=== PATIENT | male | born 1955 | race Caucasian/White ===

== ENCOUNTER 2016-07-23 17:29 | Inpatient (IN) | payer MEDICARE ==
[~2016-07-23] VITALS: Ht 177.8 cm; Wt 85.7 kg
[~2016-07-23 17:29] MED LIST: ALPRAZOLAM0.5 MG PO; AVODART0.5 MG PO; IPRAT-ALBUT 0.5-3 ML INH; LEVAQUIN750 MG PO; LIPITOR TAB 2020 MG PO; LISINOPRIL20 MG PO; LO-DOSE ASPIRIN81 MG PO; LOPRESSOR50 MG PO; LYRICA150 MG PO; MEDROL TAB 4 MG4 MG PO; NORVASC 5 MG TAB5 MG PO; OMNICEF 300 MG300 MG PO; OXYCODON-ACETA1 EAC1 PO; OXYCONTIN20 MG PO; OXYCONTIN40 MG PO; SPIRIVA18 MCG INH
[2016-07-23 18:56] LABS: HEMOGLOBIN 13.1 gm/dl (14.0-17.5); RED BLOOD COUNT 4.64 M/UL (4.20-5.50); WHITE BLOOD COUNT 11.6 K/UL (4.5-11.0)
[2016-07-24 00:29] LABS: HEMOGLOBIN 11.8 gm/dl (14.0-17.5)
[2016-07-24] MEDS ORDERED: OXYCONTIN60 MG PO (00:56)
[2016-07-24] MEDS ORDERED: OXYCONTIN40 MG PO (00:58)
[2016-07-24] MEDS ORDERED: PERCOCET 5-3251 EACH PO (00:59)
[2016-07-24] MEDS ORDERED: PERCOCET 10-321 EACH PO (01:00)
[2016-07-24 06:01] LABS: HEMOGLOBIN 13.2 gm/dl (14.0-17.5); RED BLOOD COUNT 4.65 M/UL (4.20-5.50)
[2016-07-24] MEDS ORDERED: NORVASC 5 MG TAB5 MG PO (06:30)
[2016-07-25 05:05] LABS: WHITE BLOOD COUNT 7.8 K/UL (4.5-11.0)
[2016-07-25 05:10] LABS: HEMOGLOBIN 10.6 gm/dl (14.0-17.5); RED BLOOD COUNT 3.75 M/UL (4.20-5.50)
[2016-07-25 13:06] LABS: HEMOGLOBIN 10.3 gm/dl (14.0-17.5)
[2016-07-25 22:16] LABS: BUN/CREATININE RATIO 28 (0-10)
[2016-07-26 03:59] LABS: HEMOGLOBIN 9.9 gm/dl (14.0-17.5); RED BLOOD COUNT 3.56 M/UL (4.20-5.50); WHITE BLOOD COUNT 6.7 K/UL (4.5-11.0)
[2016-07-26 04:59] LABS: BUN/CREATININE RATIO 30 (0-10)
[2016-07-27 05:49] LABS: RED BLOOD COUNT 3.6 M/UL (4.20-5.50); WHITE BLOOD COUNT 8.1 K/UL (4.5-11.0)
[2016-07-27 06:06] LABS: BUN/CREATININE RATIO 28 (0-10)
[2016-07-29 05:40] LABS: HEMOGLOBIN 10.4 gm/dl (14.0-17.5); RED BLOOD COUNT 3.75 M/UL (4.20-5.50)
[2016-07-29 05:41] LABS: WHITE BLOOD COUNT 12.9 K/UL (4.5-11.0)
[2016-07-29 05:54] LABS: BUN/CREATININE RATIO 23 (0-10)
[2016-07-31 03:00] LABS: BUN/CREATININE RATIO 28 (0-10)
[2016-08-01 04:09] LABS: HEMOGLOBIN 10.6 gm/dl (14.0-17.5); RED BLOOD COUNT 3.81 M/UL (4.20-5.50)
[2016-08-01 04:11] LABS: WHITE BLOOD COUNT 19.1 K/UL (4.5-11.0)
[2016-08-01 04:23] LABS: BUN/CREATININE RATIO 28 (0-10)
[2016-08-03 04:59] LABS: HEMOGLOBIN 10.7 gm/dl (14.0-17.5); RED BLOOD COUNT 3.92 M/UL (4.20-5.50); WHITE BLOOD COUNT 19.8 K/UL (4.5-11.0)
[2016-08-03 05:28] LABS: BUN/CREATININE RATIO 24 (0-10)
[2016-08-04 03:39] LABS: HEMOGLOBIN 11.8 gm/dl (14.0-17.5); RED BLOOD COUNT 4.3 M/UL (4.20-5.50)
[2016-08-05 04:11] LABS: HEMOGLOBIN 10.5 gm/dl (14.0-17.5); WHITE BLOOD COUNT 17.9 K/UL (4.5-11.0)
[2016-08-05 04:13] LABS: RED BLOOD COUNT 3.83 M/UL (4.20-5.50)
[2016-08-05 04:27] LABS: BUN/CREATININE RATIO 31 (0-10)
[2016-08-06 03:35] LABS: HEMOGLOBIN 10.2 gm/dl (14.0-17.5); RED BLOOD COUNT 3.78 M/UL (4.20-5.50); WHITE BLOOD COUNT 16.8 K/UL (4.5-11.0)
[2016-08-07 03:56] LABS: HEMOGLOBIN 9.4 gm/dl (14.0-17.5); RED BLOOD COUNT 3.53 M/UL (4.20-5.50); WHITE BLOOD COUNT 14.1 K/UL (4.5-11.0)
[2016-08-07 04:12] LABS: BUN/CREATININE RATIO 23 (0-10)
[2016-08-08 03:21] LABS: RED BLOOD COUNT 3.68 M/UL (4.20-5.50); WHITE BLOOD COUNT 12.9 K/UL (4.5-11.0)
[2016-08-09 03:39] LABS: HEMOGLOBIN 10.2 gm/dl (14.0-17.5); RED BLOOD COUNT 3.74 M/UL (4.20-5.50); WHITE BLOOD COUNT 10.6 K/UL (4.5-11.0)
[2016-08-09 04:03] LABS: BUN/CREATININE RATIO 25 (0-10)
[2016-08-12] MEDS ORDERED: PERCOCET 10-321 EACH PO (15:15)
[2016-08-12] MEDS ORDERED: OXYCODONE-ACET1 EACH PO (15:16)
[2016-08-12] MEDS ORDERED: LIDODERM PATCH 51 EA EXT (15:16)
[2016-08-12] MEDS ORDERED: PREDNISONE20 MG PO (15:17)
[2016-08-12] MEDS ORDERED: MYCOSTATIN100000 UTS PO (15:18)
[2016-08-12] MEDS ORDERED: PROTONIX40 MG PO (15:18)
[2016-08-12] MEDS ORDERED: METOPROLOL TART50 MG PO (15:19)
[2016-08-12] MEDS ORDERED: THEO-DUR 300 M300 MG PO (15:19)
[2016-08-12] MEDS ORDERED: SPIRIVA HANDIH18 MCG INH (15:20)
[2016-08-12] MEDS ORDERED: SINGULAIR10 MG PO (15:20)
[2016-08-12] MEDS ORDERED: BREO ELLIPTA 11 EACH INH (15:21)
== END 2016-08-12 15:49 | disposition home health service (06) | DRG 871 ==
LOC: ER1 17:29 → M/S 23:07 → CCU 23:07 → PROG CARE 23:07 → ZEROF 23:07 → CCU 23:11 → M/S 07-26 11:31 → PROG CARE 07-31 19:55 → MED SURG 4 08-11 20:25
PROVIDERS: Emergency Medicine; Hospitalist; Internal Medicine; Internal Medicine Gastroenterology; Internal Medicine Nephrology; ADMIT Internal Medicine
PROC: B543ZZA Ultrasonography of Right Jugular Veins, Guidance (ICD-10-PCS; principal; 2016-07-24)
PROC: 05HM33Z Insertion of Infusion Device into Right Internal Jugular Vein, Percutaneous Approach (ICD-10-PCS; principal; 2016-07-24)
PROC: 0BCB8ZZ Extirpation of Matter from Left Lower Lobe Bronchus, Via Natural or Artificial Opening Endoscopic (ICD-10-PCS; 2016-08-03)
PROC: 0BC58ZZ Extirpation of Matter from Right Middle Lobe Bronchus, Via Natural or Artificial Opening Endoscopic (ICD-10-PCS; 2016-08-03)
PROC: 0BC38ZZ Extirpation of Matter from Right Main Bronchus, Via Natural or Artificial Opening Endoscopic (ICD-10-PCS; 2016-08-03)
PROC: 0BC68ZZ Extirpation of Matter from Right Lower Lobe Bronchus, Via Natural or Artificial Opening Endoscopic (ICD-10-PCS; 2016-08-03)
DX: A41.9 Sepsis, unspecified organism (principal); J96.21 Acute and chronic respiratory failure with hypoxia; J15.212 Pneumonia due to Methicillin resistant Staphylococcus aureus; R57.1 Hypovolemic shock; R65.21 Severe sepsis with septic shock; J45.901 Unspecified asthma with (acute) exacerbation; J44.1 Chronic obstructive pulmonary disease with (acute) exacerbation; J98.11 Atelectasis; T17.890A Other foreign object in other parts of respiratory tract causing asphyxiation, initial encounter; K92.0 Hematemesis; N17.9 Acute kidney failure, unspecified; D62 Acute posthemorrhagic anemia; J45.51 Severe persistent asthma with (acute) exacerbation; K59.00 Constipation, unspecified; R73.9 Hyperglycemia, unspecified; I48.0 Paroxysmal atrial fibrillation; F41.9 Anxiety disorder, unspecified; E83.52 Hypercalcemia; I95.9 Hypotension, unspecified; G89.4 Chronic pain syndrome; M43.16 Spondylolisthesis, lumbar region; K27.9 Peptic ulcer, site unspecified, unspecified as acute or chronic, without hemorrhage or perforation; K46.9 Unspecified abdominal hernia without obstruction or gangrene; E66.3 Overweight; Z68.27 Body mass index [BMI] 27.0-27.9, adult; I10 Essential (primary) hypertension; F17.220 Nicotine dependence, chewing tobacco, uncomplicated; K21.9 Gastro-esophageal reflux disease without esophagitis; G47.00 Insomnia, unspecified; E78.5 Hyperlipidemia, unspecified; Z99.81 Dependence on supplemental oxygen; Z79.82 Long term (current) use of aspirin; Z79.891 Long term (current) use of opiate analgesic; Z79.899 Other long term (current) drug therapy; Z80.9 Family history of malignant neoplasm, unspecified; Z82.49 Family history of ischemic heart disease and other diseases of the circulatory system
CPT/HCPCS: ECHO; 36415; 36600; 70450; 71010; 71020; 71250; 72125; 72128; 74000; 74020; 80048; 80053; 80198; 81001; 82140; 82150; 82330; 82397; 82550; 82553; 82570; 82785; 82803; 83605; 83690; 83735; 83874; 83970; 84100; 84300; 84484; 85014; 85018; 85025; 85027; 85610; 85730; 86850; 86900; 86901; 86920; 87040; 87070; 87077; 87102; 87186; 87205; 89050; 93005; 93306; 94640; 94660; 94664; 94667; 94668; 96374; 96375; 97110; 97116; 97530; 97535; 99285; C9113; J1956; J2020; J2185; J2250; J2270; J2310; J2920; J2930; J7030; J7040; J7050

== ENCOUNTER 2016-08-23 19:59 | Inpatient (IN) | payer MEDICARE ==
[~2016-08-23] VITALS: Ht 177.8 cm; Wt 90.8 kg
[~2016-08-23 19:59] MED LIST changes: +BREO ELLIPTA 11 EACH INH; +LIDODERM PATCH 51 EA EXT; +METOPROLOL TART50 MG PO; +MYCOSTATIN100000 UTS PO; +OXYCODONE-ACET1 EACH PO; +OXYCONTIN60 MG PO; +PERCOCET 10-321 EACH PO; +PERCOCET 5-3251 EACH PO; +PREDNISONE20 MG PO; +PROTONIX40 MG PO; +SINGULAIR10 MG PO; +SPIRIVA HANDIH18 MCG INH; +THEO-DUR 300 M300 MG PO
[2016-08-23 23:05] LABS: HEMOGLOBIN 10.4 gm/dl (14.0-17.5); RED BLOOD COUNT 3.88 M/UL (4.20-5.50); WHITE BLOOD COUNT 11.7 K/UL (4.5-11.0)
[2016-08-23 23:39] LABS: BUN/CREATININE RATIO 23 (0-10)
[2016-08-26] MEDS ORDERED: PREDNISONE 10 M10 MG PO (15:04)
[2016-08-26] MEDS ORDERED: BREO ELLIPTA 11 EACH INH ×2 (15:12→15:13)
== END 2016-08-26 15:45 | disposition home or self-care (01) | DRG 202 ==
LOC: ER1 19:59 → MED SURG 4 08-24 00:52 → ZEROF 08-24 00:52 → MED SURG 4 08-24 03:00
PROVIDERS: Emergency Medicine; Internal Medicine Pulmonary Disease; ADMIT Internal Medicine
PROC: 0B968ZX Drainage of Right Lower Lobe Bronchus, Via Natural or Artificial Opening Endoscopic, Diagnostic (ICD-10-PCS; principal; 2016-08-25 07:30)
DX: J45.51 Severe persistent asthma with (acute) exacerbation (principal); T17.590A Other foreign object in bronchus causing asphyxiation, initial encounter; J98.11 Atelectasis; J90 Pleural effusion, not elsewhere classified; I48.0 Paroxysmal atrial fibrillation; I10 Essential (primary) hypertension; E78.5 Hyperlipidemia, unspecified; N28.9 Disorder of kidney and ureter, unspecified; M51.36 Other intervertebral disc degeneration, lumbar region; G89.4 Chronic pain syndrome; F11.90 Opioid use, unspecified, uncomplicated; Z87.01 Personal history of pneumonia (recurrent); F41.9 Anxiety disorder, unspecified; Z72.0 Tobacco use; Z86.14 Personal history of Methicillin resistant Staphylococcus aureus infection; Z99.81 Dependence on supplemental oxygen; Z79.02 Long term (current) use of antithrombotics/antiplatelets; Z79.51 Long term (current) use of inhaled steroids; Z79.52 Long term (current) use of systemic steroids; Z79.899 Other long term (current) drug therapy; Z87.11 Personal history of peptic ulcer disease; Z98.890 Other specified postprocedural states; Z82.49 Family history of ischemic heart disease and other diseases of the circulatory system; Z80.9 Family history of malignant neoplasm, unspecified
CPT/HCPCS: 36415; 36600; 71020; 80053; 82550; 82553; 82803; 83605; 83874; 83880; 84484; 85025; 87070; 87205; 93005; 94640; 94664; 96361; 96374; 96375; 99285; G0378; J0692; J1650; J1956; J2250; J2357; J2920; J2930; J3370; J7040; J7050; J7070; Q9963

== ENCOUNTER 2016-09-07 16:05 | Emergency (ER) | payer MEDICARE ==
[~2016-09-07 16:05] MED LIST changes: +PREDNISONE 10 M10 MG PO
[2016-09-07 17:24] LABS: HEMOGLOBIN 12.2 gm/dl (14.0-17.5); RED BLOOD COUNT 4.49 M/UL (4.20-5.50)
[2016-09-07 17:37] LABS: BUN/CREATININE RATIO 33 (0-10)
[2016-09-07 17:40] LABS: WHITE BLOOD COUNT 11.7 K/UL (4.5-11.0)
== END 2016-09-08 11:07 | disposition home or self-care (01) ==
LOC: ER1 16:05 → ZEROF 09-08 02:07
PROVIDERS: Emergency Medicine
DX: J44.1 Chronic obstructive pulmonary disease with (acute) exacerbation (principal); J18.9 Pneumonia, unspecified organism; R10.9 Unspecified abdominal pain; I10 Essential (primary) hypertension; E78.5 Hyperlipidemia, unspecified; Z99.81 Dependence on supplemental oxygen; Z79.82 Long term (current) use of aspirin; Z79.891 Long term (current) use of opiate analgesic; Z79.899 Other long term (current) drug therapy
CPT/HCPCS: 36415; 36600; 71010; 80053; 82550; 82553; 82803; 83605; 83874; 84484; 85025; 87040; 93005; 94640; 94664; 96374; 96375; 99285; J1650; J2543; J2920; J2930; J7050

== ENCOUNTER → 2016-09-21 | Outpatient (CLI) | payer MEDICARE ==
[~2016-09-21] MED LIST changes: +ACETAMINOPHEN325 MG PO; +AMBIEN5 MG PO; +FERROUS SULFAT325 M2 PO; +LANOXIN TAB 00.25 MG PO; +LYRICA100 MG PO; +MUCINEX600 MG PO; +OXYCODONE HCL E40 MG PO; +PERCOCET 7.5-31 EACH PO; +PREDNISONE 20 M20 MG PO; +THEOPHYLLINE600 MG PO; +VIBRAMYCIN100 MG PO; +ZOFRAN4 MG PO; +ZYVOX 600 MG T600 MG PO
== END ==
LOC: HEART 5 10:49
DX: J45.40 Moderate persistent asthma, uncomplicated (principal); R94.2 Abnormal results of pulmonary function studies
CPT/HCPCS: 94010; 94729

== ENCOUNTER 2016-09-22 13:33 | Emergency (ER) | payer MEDICARE ==
[~2016-09-22 13:33] MED LIST changes: -ACETAMINOPHEN325 MG PO; -AMBIEN5 MG PO; -FERROUS SULFAT325 M2 PO; -LANOXIN TAB 00.25 MG PO; -LYRICA100 MG PO; -MUCINEX600 MG PO; -OXYCODONE HCL E40 MG PO; -PERCOCET 7.5-31 EACH PO; -PREDNISONE 20 M20 MG PO; -THEOPHYLLINE600 MG PO; -VIBRAMYCIN100 MG PO; -ZOFRAN4 MG PO; -ZYVOX 600 MG T600 MG PO
[2016-09-22 14:21] LABS: HEMOGLOBIN 10.9 gm/dl (14.0-17.5); RED BLOOD COUNT 3.99 M/UL (4.20-5.50); WHITE BLOOD COUNT 7.7 K/UL (4.5-11.0)
[2016-09-22 14:36] LABS: BUN/CREATININE RATIO 31 (0-10)
== END 2016-09-22 21:34 | disposition home or self-care (01) ==
LOC: ER1 13:33
PROVIDERS: Emergency Medicine
DX: J44.1 Chronic obstructive pulmonary disease with (acute) exacerbation (principal); J18.9 Pneumonia, unspecified organism
CPT/HCPCS: 36415; 36600; 71010; 80053; 82550; 82553; 82803; 83605; 83874; 83880; 84484; 85025; 85610; 85730; 87040; 93005; 94640; 94664; 96365; 96375; 99285; J0692; J2930; J3370; J7030; J7050; Q9963

== ENCOUNTER 2016-10-15 17:45 | Emergency (ER) | payer MEDICARE ==
[2016-10-15 19:39] LABS: HEMOGLOBIN 11.8 gm/dl (14.0-17.5); RED BLOOD COUNT 4.37 M/UL (4.20-5.50); WHITE BLOOD COUNT 9.8 K/UL (4.5-11.0)
[2016-10-15 19:54] LABS: BUN/CREATININE RATIO 19 (0-10)
== END 2016-10-16 01:55 | disposition home or self-care (01) ==
LOC: ER1 17:45
PROVIDERS: Emergency Medicine
DX: J44.1 Chronic obstructive pulmonary disease with (acute) exacerbation (principal); L02.412 Cutaneous abscess of left axilla; L02.411 Cutaneous abscess of right axilla; L03.112 Cellulitis of left axilla; L03.111 Cellulitis of right axilla; I48.91 Unspecified atrial fibrillation; J45.909 Unspecified asthma, uncomplicated; I10 Essential (primary) hypertension
CPT/HCPCS: 10061; 36415; 36600; 71020; 80053; 82550; 82553; 82803; 83874; 83880; 84484; 85025; 87070; 87077; 87186; 87205; 93005; 94640; 94664; 96374; 99285; J0696; J2930; J7050

== ENCOUNTER → 2016-10-21 | Outpatient (CLI) | payer MEDICARE, OTHER ==
[~2016-10-21] MED LIST changes: +ACETAMINOPHEN325 MG PO; +AMBIEN5 MG PO; +FERROUS SULFAT325 M2 PO; +LANOXIN TAB 00.25 MG PO; +LYRICA100 MG PO; +MUCINEX600 MG PO; +OXYCODONE HCL E40 MG PO; +PERCOCET 7.5-31 EACH PO; +PREDNISONE 20 M20 MG PO; +THEOPHYLLINE600 MG PO; +VIBRAMYCIN100 MG PO; +ZOFRAN4 MG PO; +ZYVOX 600 MG T600 MG PO
== END ==
LOC: HEART 5 11:06
DX: J45.50 Severe persistent asthma, uncomplicated (principal)
CPT/HCPCS: 94060

== ENCOUNTER 2016-11-23 10:03 | Inpatient (IN) | payer MEDICARE ==
[~2016-11-23] VITALS: Ht 182.9 cm; Wt 100.0 kg
[~2016-11-23 10:03] MED LIST changes: -ACETAMINOPHEN325 MG PO; -AMBIEN5 MG PO; -FERROUS SULFAT325 M2 PO; -LANOXIN TAB 00.25 MG PO; -LYRICA100 MG PO; -MUCINEX600 MG PO; -OXYCODONE HCL E40 MG PO; -PERCOCET 7.5-31 EACH PO; -PREDNISONE 20 M20 MG PO; -THEOPHYLLINE600 MG PO; -VIBRAMYCIN100 MG PO; -ZOFRAN4 MG PO; -ZYVOX 600 MG T600 MG PO
[2016-11-23 11:06] LABS: HEMOGLOBIN 13.7 gm/dl (14.0-17.5); RED BLOOD COUNT 5.24 M/UL (4.20-5.50)
[2016-11-23 11:22] LABS: WHITE BLOOD COUNT 22.3 K/UL (4.5-11.0)
[2016-11-24 04:48] LABS: RED BLOOD COUNT 4.4 M/UL (4.20-5.50)
[2016-11-24 04:49] LABS: HEMOGLOBIN 11.3 gm/dl (14.0-17.5)
[2016-11-24 15:24] LABS: ACINETOBACTER BAUMANNII Not Detected (Negative); CANDIDA ALBICANS Not Detected (Negative); CANDIDA KRUSEI Not Detected (Negative); CANDIDA TROPICALIS Not Detected (Negative); ENTEROCOCCUS Not Detected (Negative); ESCHERICHIA COLI Not Detected (Negative); HAEMOPHILUS INFLUENZAE Not Detected (Negative); KLEBSIELLA OXYTOCA Not Detected (Negative); KLEBSIELLA PNEUMONIAE Not Detected (Negative); KPC-CARBAPENEM-RESISTANCE GENE Not Detected (Negative); PROTEUS Not Detected (Negative); PSEUDOMONAS AERUGINOSA Not Detected (Negative); SERRATIA MARCESANS Not Detected (Negative); STAPHYLOCOCCUS AUREUS Not Detected (Negative); STREP AGALACTIAE (GROUP B) Not Detected (Negative); STREP PYOGENES (GROUP A) Not Detected (Negative); STREPTOCOCCUS Not Detected (Negative); mecA (METHICILLIN RESIST GENE Not Detected (Negative); vanA/B (VANCOMYCIN RESIST GENE Not Detected (Negative)
[2016-11-24 16:48] LABS: STAPHYLOCOCCUS DETECTED (Negative)
[2016-11-25 05:15] LABS: BUN/CREATININE RATIO 44 (0-10)
[2016-11-25 05:19] LABS: RED BLOOD COUNT 3.43 M/UL (4.20-5.50); WHITE BLOOD COUNT 10.7 K/UL (4.5-11.0)
[2016-11-26 06:00] LABS: RED BLOOD COUNT 3.09 M/UL (4.20-5.50)
[2016-11-26 06:07] LABS: BUN/CREATININE RATIO 55 (0-10)
[2016-11-27 04:44] LABS: HEMOGLOBIN 8.4 gm/dl (14.0-17.5); RED BLOOD COUNT 3.14 M/UL (4.20-5.50)
[2016-11-27 04:45] LABS: WHITE BLOOD COUNT 6.6 K/UL (4.5-11.0)
[2016-11-27 04:55] LABS: BUN/CREATININE RATIO 58 (0-10)
[2016-11-28 03:27] LABS: HEMOGLOBIN 8.5 gm/dl (14.0-17.5); RED BLOOD COUNT 3.24 M/UL (4.20-5.50); WHITE BLOOD COUNT 7.1 K/UL (4.5-11.0)
[2016-11-28 03:34] LABS: BUN/CREATININE RATIO 78 (0-10)
[2016-11-29 03:35] LABS: BUN/CREATININE RATIO 83 (0-10)
[2016-11-29 03:36] LABS: HEMOGLOBIN 8.8 gm/dl (14.0-17.5); RED BLOOD COUNT 3.38 M/UL (4.20-5.50); WHITE BLOOD COUNT 7.5 K/UL (4.5-11.0)
[2016-11-30 05:06] LABS: HEMOGLOBIN 9.1 gm/dl (14.0-17.5); RED BLOOD COUNT 3.54 M/UL (4.20-5.50); WHITE BLOOD COUNT 9.1 K/UL (4.5-11.0)
[2016-11-30 05:26] LABS: BUN/CREATININE RATIO 68 (0-10)
[2016-12-01 02:49] LABS: HEMOGLOBIN 9.1 gm/dl (14.0-17.5); RED BLOOD COUNT 3.57 M/UL (4.20-5.50)
[2016-12-01 02:50] LABS: WHITE BLOOD COUNT 6.8 K/UL (4.5-11.0)
[2016-12-01 03:03] LABS: BUN/CREATININE RATIO 50 (0-10)
[2016-12-02 07:06] LABS: HEMOGLOBIN 8.5 gm/dl (14.0-17.5); RED BLOOD COUNT 3.33 M/UL (4.20-5.50); WHITE BLOOD COUNT 5.5 K/UL (4.5-11.0)
[2016-12-02 07:19] LABS: BUN/CREATININE RATIO 32 (0-10)
[2016-12-03 04:13] LABS: HEMOGLOBIN 8.5 gm/dl (14.0-17.5); RED BLOOD COUNT 3.3 M/UL (4.20-5.50); WHITE BLOOD COUNT 5.4 K/UL (4.5-11.0)
[2016-12-03 04:34] LABS: BUN/CREATININE RATIO 36 (0-10)
[2016-12-05 03:53] LABS: HEMOGLOBIN 8.9 gm/dl (14.0-17.5); RED BLOOD COUNT 3.5 M/UL (4.20-5.50); WHITE BLOOD COUNT 6.4 K/UL (4.5-11.0)
[2016-12-05 04:20] LABS: BUN/CREATININE RATIO 32 (0-10)
[2016-12-05] MEDS ORDERED: ALPRAZOLAM0.5 MG PO ×2 (12:43→12:44)
[2016-12-05] MEDS ORDERED: LANOXIN TAB 00.25 MG PO (12:46)
[2016-12-05] MEDS ORDERED: FERROUS SULFAT325 M2 PO (12:50)
[2016-12-05] MEDS ORDERED: ZYVOX 600 MG T600 MG PO (12:52)
[2016-12-05] MEDS ORDERED: IPRAT-ALBUT 0.5-3 ML INH (12:58)
[2016-12-05] MEDS ORDERED: ACETAMINOPHEN325 MG PO (13:02)
[2016-12-05] MEDS ORDERED: ZOFRAN4 MG PO (13:03)
[2016-12-05] MEDS ORDERED: AMBIEN5 MG PO (13:05)
[2016-12-05] MEDS ORDERED: PERCOCET 7.5-31 EACH PO (13:07)
== END 2016-12-05 16:33 | DRG 870 ==
LOC: ER1 10:03 → ZEROF 11:30 → CCU 11:30 → PROG CARE 12-01 18:10
PROVIDERS: Emergency Medicine; Internal Medicine Infectious Disease; ADMIT Internal Medicine
PROC: 5A1955Z Respiratory Ventilation, Greater than 96 Consecutive Hours (ICD-10-PCS; principal; 2016-11-23)
PROC: 0BH17EZ Insertion of Endotracheal Airway into Trachea, Via Natural or Artificial Opening (ICD-10-PCS; 2016-11-23)
PROC: 02HV33Z Insertion of Infusion Device into Superior Vena Cava, Percutaneous Approach (ICD-10-PCS; 2016-11-23)
PROC: 5A09457 Assistance with Respiratory Ventilation, 24-96 Consecutive Hours, Continuous Positive Airway Pressure (ICD-10-PCS; 2016-11-23)
DX: A41.9 Sepsis, unspecified organism (principal); R65.21 Severe sepsis with septic shock; J96.20 Acute and chronic respiratory failure, unspecified whether with hypoxia or hypercapnia; J15.212 Pneumonia due to Methicillin resistant Staphylococcus aureus; G92 Toxic encephalopathy; N17.9 Acute kidney failure, unspecified; E87.2 Acidosis; I48.92 Unspecified atrial flutter; I47.1 Supraventricular tachycardia; K92.2 Gastrointestinal hemorrhage, unspecified; J45.901 Unspecified asthma with (acute) exacerbation; I31.3 Pericardial effusion (noninflammatory); Y95 Nosocomial condition; Z87.01 Personal history of pneumonia (recurrent); E87.5 Hyperkalemia; I48.0 Paroxysmal atrial fibrillation; Z79.891 Long term (current) use of opiate analgesic; I10 Essential (primary) hypertension; E78.5 Hyperlipidemia, unspecified; F41.9 Anxiety disorder, unspecified; K27.9 Peptic ulcer, site unspecified, unspecified as acute or chronic, without hemorrhage or perforation; F17.220 Nicotine dependence, chewing tobacco, uncomplicated; Z82.49 Family history of ischemic heart disease and other diseases of the circulatory system; Z80.9 Family history of malignant neoplasm, unspecified; Z80.0 Family history of malignant neoplasm of digestive organs; Z99.81 Dependence on supplemental oxygen; K44.9 Diaphragmatic hernia without obstruction or gangrene; Z86.14 Personal history of Methicillin resistant Staphylococcus aureus infection; J44.9 Chronic obstructive pulmonary disease, unspecified; J45.909 Unspecified asthma, uncomplicated; D47.3 Essential (hemorrhagic) thrombocythemia; G89.29 Other chronic pain; M54.9 Dorsalgia, unspecified; I45.9 Conduction disorder, unspecified; Z79.82 Long term (current) use of aspirin; Z79.899 Other long term (current) drug therapy; T40.605A Adverse effect of unspecified narcotics, initial encounter; Y92.230 Patient room in hospital as the place of occurrence of the external cause; E87.70 Fluid overload, unspecified; E87.6 Hypokalemia; G89.4 Chronic pain syndrome; D69.6 Thrombocytopenia, unspecified; E09.9 Drug or chemical induced diabetes mellitus without complications; T38.0X5A Adverse effect of glucocorticoids and synthetic analogues, initial encounter; G47.33 Obstructive sleep apnea (adult) (pediatric)
CPT/HCPCS: 31500; 36415; 36600; 71010; 71250; 80048; 80053; 80202; 81001; 82272; 82550; 82553; 82803; 83605; 83735; 83874; 83880; 84132; 84439; 84443; 84484; 85025; 85027; 85610; 85730; 87040; 87070; 87077; 87150; 87186; 87205; 93005; 93308; 94002; 94003; 94640; 94660; 94664; 96374; 96375; 97110; 97530; 99291; A4628; C1751; C9113; J0330; J1040; J1160; J1720; J1940; J1956; J3370; J7030; J7050; J7070; Q0162

== ENCOUNTER 2017-02-19 20:10 | Inpatient (IN) | payer MEDICARE ==
[~2017-02-19] VITALS: Ht 180.3 cm; Wt 99.8 kg
[~2017-02-19 20:10] MED LIST changes: +ACETAMINOPHEN325 MG PO; +AMBIEN5 MG PO; +FERROUS SULFAT325 M2 PO; +LANOXIN TAB 00.25 MG PO; +PERCOCET 7.5-31 EACH PO; +ZOFRAN4 MG PO; +ZYVOX 600 MG T600 MG PO
[2017-02-19 21:51] LABS: HEMOGLOBIN 10.1 gm/dl (14.0-17.5); RED BLOOD COUNT 4.19 M/UL (4.20-5.50); WHITE BLOOD COUNT 12.4 K/UL (4.5-11.0)
[2017-02-19 22:08] LABS: BUN/CREATININE RATIO 21 (0-10)
[2017-02-21 04:20] LABS: HEMOGLOBIN 9.9 gm/dl (14.0-17.5); RED BLOOD COUNT 4.15 M/UL (4.20-5.50); WHITE BLOOD COUNT 10.9 K/UL (4.5-11.0)
[2017-02-21 04:36] LABS: BUN/CREATININE RATIO 27 (0-10)
--- NOTE | 2017-02-21 14:08 | NUR ---
REPORT CALLED TO RN ON 4TH FLOOR. PATIENT BEING TRANSFERED TO [facility]. FAMILY AND PATIENT AWARE. PT ALERT AND ORIENTED, SATS WNL ON RA. VSS. WELFARE MANAGER APPLIED PRIOR TO TRANSPORT. WILL CONTINUE TO MONITOR.
[2017-02-22 04:32] LABS: HEMOGLOBIN 10.6 gm/dl (14.0-17.5); RED BLOOD COUNT 4.34 M/UL (4.20-5.50)
[2017-02-22 04:35] LABS: WHITE BLOOD COUNT 16.3 K/UL (4.5-11.0)
[2017-02-22 04:43] LABS: BUN/CREATININE RATIO 25 (0-10)
[2017-02-23] MEDS ORDERED: MUCINEX600 MG PO ×2 (17:40→18:07)
[2017-02-23] MEDS ORDERED: VIBRAMYCIN100 MG PO (18:00)
[2017-02-23] MEDS ORDERED: LEVAQUIN750 MG PO (18:00)
[2017-02-23] MEDS ORDERED: PREDNISONE 20 M20 MG PO (18:09)
[2017-02-23] MEDS ORDERED: THEOPHYLLINE600 MG PO (18:59)
[2017-02-23] MEDS ORDERED: LYRICA100 MG PO (19:00)
[2017-02-23] MEDS ORDERED: OXYCODONE HCL E40 MG PO (19:22)
== END 2017-02-23 19:50 | disposition home or self-care (01) | DRG 190 ==
LOC: ER1 20:10 → ZEROF 23:15 → CCU 23:15 → MED SURG 4 02-21 14:21
PROVIDERS: Emergency Medicine; Internal Medicine; ADMIT Internal Medicine
DX: J44.0 Chronic obstructive pulmonary disease with (acute) lower respiratory infection (principal); J18.9 Pneumonia, unspecified organism; J96.21 Acute and chronic respiratory failure with hypoxia; J45.901 Unspecified asthma with (acute) exacerbation; J44.1 Chronic obstructive pulmonary disease with (acute) exacerbation; E11.9 Type 2 diabetes mellitus without complications; I10 Essential (primary) hypertension; E78.5 Hyperlipidemia, unspecified; I48.0 Paroxysmal atrial fibrillation; F41.9 Anxiety disorder, unspecified; F17.220 Nicotine dependence, chewing tobacco, uncomplicated; M25.512 Pain in left shoulder; G89.29 Other chronic pain; M54.9 Dorsalgia, unspecified; Y95 Nosocomial condition; Z99.81 Dependence on supplemental oxygen; Z82.49 Family history of ischemic heart disease and other diseases of the circulatory system; Z87.01 Personal history of pneumonia (recurrent); Z79.891 Long term (current) use of opiate analgesic; Z87.11 Personal history of peptic ulcer disease; Z80.9 Family history of malignant neoplasm, unspecified; Z28.21 Immunization not carried out because of patient refusal
CPT/HCPCS: 36415; 36600; 71010; 71020; 73030; 80048; 80053; 82803; 83605; 83880; 84484; 85025; 85027; 87040; 93005; 94640; 94664; 96374; 96375; 99285; J1650; J1956; J2920; J2930; J3370; J7070